=== PATIENT | female | born 1970 | race Caucasian/White ===

== ENCOUNTER 2020-01-04 02:48 | Emergency (ER) | payer OTHER ==
[~2020-01-04] VITALS: Ht 167.6 cm; Wt 86.1 kg
[~2020-01-04 02:48] MED LIST: FIORICET 50-321 EACH; LISINOPRIL; PROMETHAZINE12.5 M1; SOMA; TOPAMAX25 M1; TOPROL XL100 MG; VICODIN 5-5001 EACH PO; ZOLOFT 50 MG TA50 M1; ZOMIG ZMT2.5 MG
[2020-01-04 03:28] LABS: ABSOLUTE BASOPHILS 0.1 thou/uL (0.0-0.2); ABSOLUTE EOSINOPHILS 0.1 thou/uL (0.0-0.7); ABSOLUTE LYMPHOCYTES 3.9 thou/uL (0.8-5.3); ABSOLUTE MONOCYTES 0.8 thou/uL (0.0-1.2); ABSOLUTE NEUTROPHILS 4.7 thou/uL (1.6-8.1); BASOPHILS 1.1 %; HEMATOCRIT 42.1 % (37.0-47.0); HEMOGLOBIN 13.8 gm/dL (12.0-15.0); LYMPHOCYTES 40.4 %; MCHC 32.8 g/dL (28.0-37.0); MCV 91.5 fL (80.0-100.0); MONOCYTES 8.6 %; MPV 7.8 fl. (7.2-11.1); NUCLEATED RBCS 0 /100WBC; PLATELET COUNT* 349 thou/uL (150-400); POLYS 48.9 %; RBC 4.61 mil/uL (4.20-5.00); RDW-CV 15.2 % (10.5-14.5); WBC 9.7 thou/uL (4.0-11.0)
[2020-01-04 03:32] LABS: CALCIUM 8.4 mg/dL (8.5-10.1); CREATININE 1.1 mg/dL (0.6-1.3); POTASSIUM 3.1 mmol/L (3.5-5.1)
[2020-01-04 03:36] LABS: ALBUMIN 3.6 g/dL (3.4-5.0); MAGNESIUM 2.3 mg/dL (1.8-2.4); TOTAL BILIRUBIN 0.2 mg/dL (<0.1-1.0); TOTAL PROTEIN 7.7 g/dL (6.4-8.2)
[2020-01-04 05:50] LABS: SALICYLATE < 2.8 mg/dL (2.8-20.0)
[2020-01-04 05:51] LABS: ACETAMINOPHEN < 2 ug/mL (10-30)
[2020-01-04 05:53] LABS: AMP/METHAMP Negative (Negative); BARBITURATES Negative (Negative); BENZODIAZEPINES Negative (Negative); COCAINE Negative (Negative); METHADONE Negative (Negative); OPIATES Negative (Negative); PCP Negative (Negative); THC Negative (Negative); URINE BILIRUBIN NEGATIVE (Negative); URINE BLOOD NEGATIVE (Negative); URINE CLARITY CLEAR; URINE COLOR STRAW; URINE GLUCOSE-RANDOM NEGATIVE (Negative); URINE KETONES NEGATIVE (Negative); URINE LEUKOCYTES-REFLEX TRACE (Negative); URINE NITRITE-REFLEX NEGATIVE (Negative); URINE PROTEIN NEGATIVE (Negative); URINE SPECIFIC GRAVITY <= 1.005 (1.005-1.030); URINE UROBILINOGEN 0.2 E.U./dl (0.2-1.0)
[2020-01-04 06:28] LABS: BACTERIA-REFLEX >30 Many /HPF (None Seen); CASTS None Seen /LPF (None Seen); CRYSTALS None Seen /LPF (None Seen); MUCUS None Seen strn/LPF (None Seen); SQUAMOUS 4-10 Moderate /LPF (0-3); URINE RBC None Seen /HPF (0-2); URINE WBC-REFLEX 0-5 Rare /HPF (0-5)
[2020-01-04 21:40] VITALS: BP 108/65
--- NOTE | 2020-01-07 08:30 | EKG ---
[place] [address] ELECTROCARDIOGRAM REPORT Name: ROE LR Room: [facility]#: [id number] Admission: 01/04/20 Attend Phys: Discharge: 01/04/20 Date of : 66 Date of Service: 01/04/20299 Report #: [id number] THIS REPORT FOR: //name// [facility] ED Test Date: 2020-01-04 Test Time: 03:00:11 Pat Name: ROE LR Department: Room: Gender: F [employer] Helper: [place] : 1970 Requested By: Amelia Gong Order Number: [id number] MD: Trung Ferrara Measurements Intervals [place] Rate: 123 P: 54 [place]: 151 QRS: 22 QRSD: 89 T: 42 QT: 328 QTc: 470 Interpretive Statements Sinus tachycardia No previous ECG available for comparison Electronically Signed On 01-07-2020 8:30:31 [employer] UP WORK[employer] by Trung Ferrara [email or web address] <ELECTRONICALLY SIGNED> By: Garfield Ferrara MD, [facility] 01/07/20829 9 9 Garfield Ferrara MD, FACC /EPI
== END 2020-01-04 21:40 | disposition still patient (30) ==
LOC: M.ERS 02:48
PROVIDERS: Emergency Medicine
DX: T42.6X1A Poisoning by other antiepileptic and sedative-hypnotic drugs, accidental (unintentional), initial encounter (principal); R11.10 Vomiting, unspecified; E87.6 Hypokalemia; G43.909 Migraine, unspecified, not intractable, without status migrainosus; R45.851 Suicidal ideations; I10 Essential (primary) hypertension; Z20.828 Contact with and (suspected) exposure to other viral communicable diseases; Z98.890 Other specified postprocedural states; Z79.899 Other long term (current) drug therapy; Z88.2 Allergy status to sulfonamides; Y92.89 Other specified places as the place of occurrence of the external cause

== ENCOUNTER 2020-08-09 17:23 | Emergency (ER) | payer OTHER ==
[~2020-08-09] VITALS: Ht 165.1 cm; Wt 88.5 kg
[2020-08-09] MEDS ORDERED: LAMICTAL (GREE1 EACH PO (17:50)
[2020-08-09] MEDS ORDERED: HYDROCHLOROTHIA25 M1 PO (17:50)
[2020-08-09] MEDS ORDERED: CYMBALTA20 MG PO (17:50)
[2020-08-09] MEDS ORDERED: APAP W/CODEINE1 TA2 PO (19:25)
[2020-08-09 19:36] VITALS: BP 105/69
== END 2020-08-09 19:36 | disposition home or self-care (01) ==
LOC: M.ERS 17:23
DX: G43.909 Migraine, unspecified, not intractable, without status migrainosus (principal); Z20.822 Contact with and (suspected) exposure to COVID-19; I10 Essential (primary) hypertension; Z88.2 Allergy status to sulfonamides; Z98.890 Other specified postprocedural states

== ENCOUNTER 2020-09-10 14:19 | Emergency (ER) | payer OTHER ==
[~2020-09-10] VITALS: Ht 165.1 cm; Wt 86.2 kg
[~2020-09-10 14:19] MED LIST changes: +APAP W/CODEINE1 TA2 PO; +CYMBALTA20 MG PO; +HYDROCHLOROTHIA25 M1 PO; +LAMICTAL (GREE1 EACH PO
[2020-09-10] MEDS ORDERED: HYDROXYZINE HCL25 M2 PO (14:29)
[2020-09-10] MEDS ORDERED: CARVEDILOL12.5 MG PO (14:29)
[2020-09-10] MEDS ORDERED: TRAMADOL 50 MG50 MG PO (14:30)
[2020-09-10] MEDS ORDERED: NEURONTIN 300M300 M2 PO (14:30)
[2020-09-10 15:44] VITALS: BP 183/99
== END 2020-09-10 15:45 | disposition home or self-care (01) ==
LOC: M.ERS 14:19
DX: F41.9 Anxiety disorder, unspecified (principal); Z20.822 Contact with and (suspected) exposure to COVID-19; G43.909 Migraine, unspecified, not intractable, without status migrainosus; I10 Essential (primary) hypertension; Z88.2 Allergy status to sulfonamides; Z79.899 Other long term (current) drug therapy; Z98.890 Other specified postprocedural states

== ENCOUNTER 2020-09-28 15:16 | Emergency (ER) | payer OTHER ==
[~2020-09-28] VITALS: Ht 152.4 cm; Wt 68.0 kg
[~2020-09-28 15:16] MED LIST changes: +CARVEDILOL12.5 MG PO; +HYDROXYZINE HCL25 M2 PO; +NEURONTIN 300M300 M2 PO; +TRAMADOL 50 MG50 MG PO
[2020-09-28 17:06] LABS: URINE BILIRUBIN NEGATIVE (Negative); URINE BLOOD TRACE (Negative); URINE CLARITY CLEAR; URINE COLOR YELLOW; URINE GLUCOSE-RANDOM NEGATIVE (Negative); URINE KETONES NEGATIVE (Negative); URINE LEUKOCYTES-REFLEX TRACE (Negative); URINE NITRITE-REFLEX NEGATIVE (Negative); URINE PROTEIN NEGATIVE (Negative); URINE UROBILINOGEN 0.2 E.U./dl (0.2-1.0)
[2020-09-28 17:17] LABS: AMP/METHAMP Negative (Negative); BARBITURATES Negative (Negative); BENZODIAZEPINES Negative (Negative); COCAINE POSITIVE (Negative); METHADONE Negative (Negative); OPIATES Negative (Negative); PCP Negative (Negative); THC Negative (Negative)
[2020-09-28 17:39] LABS: HYALINE CASTS 0-3 Few /LPF (None Seen); MUCUS None Seen strn/LPF (None Seen); SQUAMOUS >10 Many /LPF (0-3); URINE WBC-REFLEX 0-5 Rare /HPF (0-5)
[2020-09-28 17:40] LABS: BACTERIA-REFLEX 1-9 Few /HPF (None Seen); CRYSTALS None Seen /LPF (None Seen); URINE RBC 0-2 Rare /HPF (0-2)
[2020-09-28 17:48] VITALS: BP 120/86
== END 2020-09-28 17:50 | disposition left against medical advice (07) ==
LOC: M.ERS 15:16
PROVIDERS: Nurse Practitioner Family
DX: S60.412A Abrasion of right middle finger, initial encounter (principal); S60.414A Abrasion of right ring finger, initial encounter; F10.129 Alcohol abuse with intoxication, unspecified; F14.10 Cocaine abuse, uncomplicated; F32.9 Major depressive disorder, single episode, unspecified; I10 Essential (primary) hypertension; G43.909 Migraine, unspecified, not intractable, without status migrainosus; Z98.890 Other specified postprocedural states; Z88.2 Allergy status to sulfonamides; W20.8XXA Other cause of strike by thrown, projected or falling object, initial encounter; Y93.89 Activity, other specified; Y92.89 Other specified places as the place of occurrence of the external cause; Y99.8 Other external cause status

== ENCOUNTER 2020-09-30 11:20 | Emergency (ER) | payer OTHER ==
[~2020-09-30] VITALS: Ht 165.1 cm; Wt 86.2 kg
[2020-09-30] MEDS ORDERED: NEURONTIN 300M300 M2 PO (11:29)
[2020-09-30] MEDS ORDERED: XANAX1 MG PO (11:29)
[2020-09-30] MEDS ORDERED: NORCO5 PO (12:49)
[2020-09-30] MEDS ORDERED: DOXYCYCLINE 10100 MG PO (13:01)
[2020-09-30] MEDS ORDERED: IBUPROFEN 800800 M1 PO (13:01)
[2020-09-30 13:20] VITALS: BP 157/88
== END 2020-09-30 13:20 | disposition home or self-care (01) ==
LOC: M.ERS 11:20
DX: L53.8 Other specified erythematous conditions (principal); I10 Essential (primary) hypertension; F14.10 Cocaine abuse, uncomplicated; G43.909 Migraine, unspecified, not intractable, without status migrainosus; Z88.2 Allergy status to sulfonamides; Z79.899 Other long term (current) drug therapy; Z98.890 Other specified postprocedural states